=== PATIENT | male | born 1940 | race Hispanic/Latino ===

== ENCOUNTER 2016-11-08 07:37 | Day surgery (SDC) | payer MEDICARE | END 2016-11-08 07:38 | disposition home or self-care (01) | LOC: OPU 07:37 | PROVIDERS: ATTEND Internal Medicine | DX: I25.810 Atherosclerosis of coronary artery bypass graft(s) without angina pectoris (principal); Z53.8 Procedure and treatment not carried out for other reasons; I48.92 Unspecified atrial flutter; I42.9 Cardiomyopathy, unspecified; I13.0 Hypertensive heart and chronic kidney disease with heart failure and stage 1 through stage 4 chronic kidney disease, or unspecified chronic kidney disease; N18.3 Chronic kidney disease, stage 3 (moderate); I50.30 Unspecified diastolic (congestive) heart failure; D63.1 Anemia in chronic kidney disease; Z95.2 Presence of prosthetic heart valve; Z87.891 Personal history of nicotine dependence; Z72.89 Other problems related to lifestyle ==

== ENCOUNTER 2016-11-15 05:58 | Day surgery (SDC) | payer MEDICARE ==
[2016-11-15] MEDS ORDERED: ECOTRIN PO ONE (06:23)
[2016-11-15 06:50] LABS: Basophils % (Auto) 1.1 % (0.0-1.8); Eosinophils % (Auto) 3.6 % (0.0-4.3); Hematocrit 33.1 % (35.5-45.6); Hemoglobin 10.9 gm/dl (11.8-15.2); Mean Corpuscular HGB Conc 33 % (32-34); Mean Corpuscular Hemoglobin 27 pg (28-32); Mean Corpuscular Volume 83 fl (84-94); Platelet Count 217 K/mm3 (140-440); Red Blood Count 3.98 M/mm3 (3.65-5.03); Red Cell Distribution Width 15.4 % (13.2-15.2); White Blood Count 7.9 K/mm3 (4.5-11.0)
[2016-11-15] MEDS ORDERED: NACL 0.9% 500 ML 500 ML IV SCH (07:00)
[2016-11-15 07:09] LABS: BUN/Creatinine Ratio 17.05; Chloride 105.9 mmol/L (98-107); Potassium 4.7 mmol/L (3.6-5.0)
[2016-11-15 07:28] LABS: INR 0.99 (0.87-1.13)
[2016-11-15] MEDS ORDERED: VERSED ONE (08:20)
[2016-11-15] MEDS ORDERED: HEPARIN/NS 5000 UNIT/500ML(CATH LAB) 1,000 ML IR ONE (08:20)
[2016-11-15] MEDS ORDERED: HEPARIN/NS 5000 UNIT/500ML(CATH LAB) 500 ML IR ONE (08:23)
[2016-11-15] MEDS: SUBLIMAZE ONE ×2 (08:45→08:47)
[2016-11-15] MEDS: XYLOCAINE 2% INFILTRATI ONE ×2 (08:47→08:49)
[2016-11-15] MEDS ORDERED: APRESOLINE ONE (10:08)
--- NOTE | 2016-11-15 10:10 | Short Stay Summary ---
Short Stay Documentation Date of service: 11/15/16 - History H&P: obtained from office - Allergies and Medications Current Medications: Allergies No Known Allergies Allergy (Verified 03/26/15 12:26) Home Medications Medication Instructions Recorded Confirmed Last Taken Type Sodium Bicarbonate 4 tab PO BID 09/13/15 11/15/16 11/13/16 History 650mg Carvedilol [Coreg] 12.5 mg PO BID #60 tablet 09/24/15 11/15/16 11/15/16 Rx 12.5mg Escitalopram [Lexapro] 10 mg PO DAILY #30 tablet 09/24/15 11/15/16 11/14/16 Rx 10mg ISOSORBIDE MONOnitrate [Imdur ER] 30 mg PO QDAY #30 tablet 09/24/15 11/15/1609/21 Rx 30mg Pantoprazole [Protonix TAB] 40 mg PO QDAY #30 tablet 09/24/15 11/15/16 11/14/16 Rx 40mg Potassium Chloride [K-Dur] 20 meq PO DAILY #30 tablet 09/24/15 11/15/16 Rx 20meq Rosuvastatin (Nf) [Crestor] 20 mg PO QHS #30 tablet 09/24/15 11/15/16 11/14/16 Rx 20mg Clonidine HCl 0.2 mg PO DAILY 10/18/16 11/15/16 11/15/16 History 0.2mg hydrALAZINE [Apresoline TAB] 25 mg PO Q8HR 10/18/16 11/15/16 11/14/16 History 25mg Active Medications Sodium Chloride (Nacl 0.9% 500 Ml) 500 mls @ 50 mls/hr IV DIRECT MEKA Stop: 11/15/16 16:59 Last Admin: 11/15/16 07:30 Dose: 50 mls/hr - Physical exam General appearance: no acute distress Integumentary: no rash HEENT: Atraumatic Lungs: Clear to auscultation Breasts: deferred Heart: Regular rate Gastrointestinal: normal Female Genitourinary: deferred Rectal Exam: deferred Extremities: no ischemia Neurological: Normal gait - Brief post op/procedure progress note Date of procedure: 11/15/16 Pre-op diagnosis: Aortic stenosis Post-op diagnosis: same Procedure: LHC, RHC Anesthesia: MAC Findings: See Report Surgeon: ADARSH CASTELLANO Estimated blood loss: none Pathology: none Condition: stable - Hospital course Hospital course: Uneventful - Disposition Condition at discharge: Good Disposition: DISCHARGED TO HOME OR SELFCARE Short Stay Discharge Plan Activity: no driving until cleared by PCP (for 2 days) Weight Bearing Status: Non-Weight Bearing (for 2 days) Diet: low fat, low cholesterol, low salt Wound: keep clean and dry
[2016-11-15] MEDS ORDERED: APRESOLINE IV ONE (11:00)
--- NOTE | 2016-11-15 13:26 | Cardiac Catherization Report ---
LEFT HEART CATHETERIZATION AND RIGHT HEART CATHETERIZATION INDICATION FOR PROCEDURE: Shortness of breath, aortic valve stenosis. ORDERING PHYSICIAN: Arleth Macdonald MD. PROCEDURES PERFORMED: 1. Selective left coronary angiography. 2. Selective angiography of the COY graft to the LAD. 3. Selective angiography of the saphenous vein graft to the right posterior descending artery. 4. Right heart catheterization with hemodynamic measurement and oxygen saturation run. 5. Measurements of the gradient across the aortic valve with a double lumen pigtail. DESCRIPTION OF PROCEDURE: After obtaining written consent, the patient was draped using sterile technique. A 2% lidocaine was injected into the right groin. Using micropuncture technique, a 6-[place]izen [place] vascular sheath was inserted into the right common femoral artery and an 8-Citizen [place] vascular sheath was inserted into the right common femoral vein. A 7-Citizen [place]-Mirza catheter was used to measure right-sided hemodynamics and perform oxygen saturation run. A 6-Citizen [place] JL4 catheter was used to selectively engage the left coronary artery. A 6-[place] JR4 catheter was used to selectively engage the saphenous vein graft to the right posterior descending artery. A JR4 catheter was used to selectively engage the COY graft to the LAD. A double lumen pigtail was used to measure the gradient across the aortic valve. Left ventriculogram was not performed due to the patient's underlying renal insufficiency. No complications occurred during the procedure. Hemostasis was achieved at the end of the procedure using manual pressure. SPECIMEN REMOVED: None. ESTIMATED BLOOD LOSS: Minimal. FINDINGS: 1. Hemodynamics: Mean pulmonary capillary wedge pressure was 19 mmHg. 2. Mean pulmonary artery pressure was 39 mmHg. Pulmonary artery systolic pressure was 63 mmHg and the diastolic pressure of 25 mmHg. 3. Right ventricular systolic pressure is 70 mmHg with right ventricular end-diastolic pressure of 16 mmHg. 4. The mean right arterial pressure is 15 mmHg. 5. The aortic pressure was 218/70, the left ventricular systolic pressure was 232 mmHg and the left ventricular end-diastolic pressure was measured at 31 mmHg. 6. The mean gradient across the aortic valve is measured at 26 mmHg with a [id number] gradient of 14 mmHg. The aortic valve area was calculated at 1.34 cm square. 7. The Cameron cardiac output is 5.15 L per minute with a Cameron cardiac index of 2.89 L per minute per meter square. CARDIAC STRUCTURES: The left ventriculogram was not performed due to the patient's underlying renal insufficiency. CORONARY ANATOMY: 1. This is a right dominant circulation. 2. The left main has evidence of a stent extending from the mid segment into the proximal segment of the circumflex artery. This stent is patent with approximately 20-30% in-stent restenosis. 3. The left anterior descending artery is 100% occluded at the ostium. 4. The left circumflex artery exhibits evidence of 50% tubular stenosis involving the ostium of a small second obtuse marginal. 5. The right coronary artery is known to be occluded from previous coronary angiograms. 6. The COY to the LAD is patent with excellent distal vessel run-off. 7. The saphenous vein graft to the RCA is occluded. This is known from a previous coronary angiogram. 8. There are collaterals coming from the LAD to the distal right coronary artery. IMPRESSION: 1. Moderate aortic valve stenosis with a mean gradient of 26 mmHg, and aortic valve area of 1.34 cm square. It was fairly easy to cross the valve with a J-tipped wire. 2. Patent left main, proximal circumflex artery stent. Patent COY to the LAD with excellent distal vessel run-off. Collaterals are noted from the LAD into the distal right coronary artery. A tubular 50% stenosis is noted in the proximal segment of the small second obtuse marginal. 3. Evidence of elevated left and right-sided filling pressures. 4. Preserved cardiac output with evidence of moderate pulmonary venous hypertension. 5. No evidence of an intracardiac shunt. RECOMMENDATIONS: 1. The patient will be recommended for medical therapy with afterload reduction and gentle diuresis. 2. There is no indication on invasive assessment. The patient has significant aortic stenosis. JOB# [id number] ROSARIO/ROMELIA
[2016-11-15 13:36] VITALS: BP 153/63
== END 2016-11-15 14:11 | disposition home or self-care (01) ==
LOC: OPU 05:58
PROVIDERS: ATTEND Internal Medicine
DX: I25.10 Atherosclerotic heart disease of native coronary artery without angina pectoris (principal); I27.2 Other secondary pulmonary hypertension; K21.9 Gastro-esophageal reflux disease without esophagitis; E78.00 Pure hypercholesterolemia, unspecified; I48.0 Paroxysmal atrial fibrillation; I36.1 Nonrheumatic tricuspid (valve) insufficiency; I11.0 Hypertensive heart disease with heart failure; I50.21 Acute systolic (congestive) heart failure; Z98.890 Other specified postprocedural states; Z83.3 Family history of diabetes mellitus; Z82.49 Family history of ischemic heart disease and other diseases of the circulatory system; Z87.891 Personal history of nicotine dependence; Z72.89 Other problems related to lifestyle; Z95.2 Presence of prosthetic heart valve; Z95.1 Presence of aortocoronary bypass graft; Z95.5 Presence of coronary angioplasty implant and graft
CPT/HCPCS: 36415; 80048; 85025; 85610; 85730; 93005; 93010; 93460; 96374; C1751; C1769; C1894; J0360; J1644; J2250; J3010; J7040; Q9967

== ENCOUNTER 2017-09-19 07:33 | Day surgery (SDC) | payer MEDICARE ==
[2017-09-19] MEDS ORDERED: VERSED IV ONE (09:00)
[2017-09-19] MEDS ORDERED: HURRICAINE ONE 20% TOPICAL SPRAY MM NR (09:00)
[2017-09-19] MEDS ORDERED: SUBLIMAZE IV ONE (09:00)
--- NOTE | 2017-09-19 10:24 | Short Stay Summary ---
Short Stay Documentation Date of service: 09/19/17 - History H&P: obtained from office - Allergies and Medications Current Medications: Allergies No Known Allergies Allergy (Verified 03/26/15 12:26) Home Medications Medication Instructions Recorded Confirmed Last Taken Type Sodium Bicarbonate 4 tab PO BID 09/13/15 09/19/17 09/19/17 06:00 History Carvedilol [Coreg] 12.5 mg PO BID #60 tablet 09/24/15 09/19/17 09/19/17 06:00 Rx Escitalopram [Lexapro] 10 mg PO DAILY #30 tablet 09/24/15 09/19/17 09/19/17 06: 00 Rx ISOSORBIDE MONOnitrate [Imdur ER] 30 mg PO QDAY #30 tablet 09/24/15 09/19/17 06:00 Rx Pantoprazole [Protonix TAB] 40 mg PO QDAY #30 tablet 09/24/15 09/19/17 09/19/17 06:00 Rx Potassium Chloride [K-Dur] 20 meq PO DAILY #30 tablet 09/24/15 09/19/17 06:00 Rx Rosuvastatin (Nf) [Crestor] 20 mg PO QHS #30 tablet 09/24/15 09/19/17 09/18/17 Rx Clonidine HCl 0.2 mg PO DAILY 10/18/16 09/19/17 09/19/17 06:00 History hydrALAZINE [Apresoline TAB] 25 mg PO Q8HR 10/18/16 09/19/17 09/19/17 06:00 History Losartan Potassium [Losartan 100 mg PO DAILY 09/19/17 09/19/17 09/19/17 06:00 History Potassium] - Physical exam General appearance: no acute distress Integumentary: no rash HEENT: Atraumatic Lungs: Clear to auscultation Breasts: deferred Heart: Regular rate, Murmur Gastrointestinal: normal Male Genitourinary: deferred Female Genitourinary: deferred Rectal Exam: deferred Extremities: no ischemia Neurological: Normal gait - Brief post op/procedure progress note Date of procedure: 09/19/17 Pre-op diagnosis: Aortic stenosis Post-op diagnosis: same Procedure: TTE Anesthesia: none Findings: See report Surgeon: ADARSH CASTELLANO Estimated blood loss: none Pathology: none Condition: stable - Hospital course Hospital course: YAW not performed Needed information was obtained from a TTE - Disposition Condition at discharge: Good Disposition: [id number]-01 TO HOME OR SELFCARE Short Stay Discharge Plan Activity: advance as tolerated Weight Bearing Status: Weight Bear as Tolerated Diet: low fat, low cholesterol, low salt Follow up with: JEAN-PAUL HERNANDEZ JR, MD [Primary Care Provider] - 7 Days
[2017-09-19 10:49] VITALS: BP 149/58
== END 2017-09-19 11:41 | disposition home or self-care (01) ==
LOC: CATHLABREC 07:33 → EDSTATUS 09:30 → CATHLABREC 11:41
PROVIDERS: ATTEND Internal Medicine
DX: I48.0 Paroxysmal atrial fibrillation (principal); I35.0 Nonrheumatic aortic (valve) stenosis; I49.5 Sick sinus syndrome; I25.10 Atherosclerotic heart disease of native coronary artery without angina pectoris; I10 Essential (primary) hypertension; E78.00 Pure hypercholesterolemia, unspecified; K21.9 Gastro-esophageal reflux disease without esophagitis; C91.10 Chronic lymphocytic leukemia of B-cell type not having achieved remission; F17.200 Nicotine dependence, unspecified, uncomplicated; Z79.01 Long term (current) use of anticoagulants; Z95.1 Presence of aortocoronary bypass graft; Z95.2 Presence of prosthetic heart valve; Z98.890 Other specified postprocedural states; Z79.899 Other long term (current) drug therapy; Z82.49 Family history of ischemic heart disease and other diseases of the circulatory system
CPT/HCPCS: 93306; J2250; J3010

== ENCOUNTER 2017-12-14 08:54 | Day surgery (SDC) | payer MEDICARE ==
[2017-12-14 10:02] LABS: Albumin 3.6 g/dL (3.9-5); Calcium 8.5 mg/dL (8.4-10.2)
[2017-12-14 10:18] LABS: INR 1.03 (0.87-1.13)
[2017-12-14 10:19] LABS: Partial Thromboplastin Time 38.3 Sec. (24.2-36.6)
--- NOTE | 2017-12-14 11:36 | Procedure Note ---
Date of procedure: 12/14/17 Pre-op diagnosis: lt pleural effusion Post-op diagnosis: same Procedure: thoracentesis Anesthesia: local Surgeon: FRANCIS KENDRICK Estimated blood loss: none Pathology: list (pleural fluid) Specimen disposition: to lab Condition: stable Disposition: observation
[2017-12-14 11:52] LABS: pH, Body Fluid 7.491
--- NOTE | 2017-12-14 12:14 | Ultrasound Report ---
Ultrasound-guided left thoracentesis: Lymphoma patient with left pleural effusion. Imaging of the patient's back in the upright position demonstrated a large-volume of left pleural fluid. An entrance site was marked on the patient's back. The skin was cleansed and draped. 1% lidocaine used for local anesthesia. A skin elena a 5 [employer] catheter was successfully placed into the pleural collection. 120 cc of fluid was initially removed for laboratory evaluation. A total of 1.6 L of straw-colored fluid was successfully removed without complication.
[2017-12-14 12:55] LABS: Total Cells Counted 100 /mm3
--- NOTE | 2017-12-14 13:00 | XRay Report ---
Portable chest: Left thoracentesis. The cardiac contour is slightly enlarged. An intact bipolar pacemaker is present with bypass changes. There is vascular congestion. There are bilateral effusions greater on the right and left. There is no pneumothorax identified. Impression: Congestive changes. No complication of left thoracentesis.
[2017-12-14 13:09] VITALS: BP 101/39
[2017-12-19 07:37] LABS: LDH,Body Fluid 122; Total Protein,Body Fluid < 3.0 (15.0-45.0); Triglycerides,Body Fluid 12
== END 2017-12-14 13:40 | disposition home or self-care (01) ==
LOC: CATHLABREC 08:54 → EDSTATUS 09:00 → CATHLABREC 13:40
PROVIDERS: ATTEND Internal Medicine Critical Care Medicine
DX: J90 Pleural effusion, not elsewhere classified (principal); Z79.899 Other long term (current) drug therapy; Z79.01 Long term (current) use of anticoagulants
CPT/HCPCS: 32555; 36415; 71045; 80053; 82040; 82947; 83605; 83615; 83880; 84160; 84478; 85610; 85730; 87116; 88112; 88305; 89051

== ENCOUNTER 2018-01-03 10:17 | Outpatient (CLI) | payer MEDICARE ==
[2018-01-03 10:45] LABS: Calcium 8.7 mg/dL (8.4-10.2)
== END 2018-01-03 10:18 | disposition home or self-care (01) ==
LOC: LAB 10:17
PROVIDERS: ATTEND Internal Medicine Nephrology
DX: I13.0 Hypertensive heart and chronic kidney disease with heart failure and stage 1 through stage 4 chronic kidney disease, or unspecified chronic kidney disease (principal); I50.9 Heart failure, unspecified; N18.3 Chronic kidney disease, stage 3 (moderate); N25.81 Secondary hyperparathyroidism of renal origin; I48.91 Unspecified atrial fibrillation; I25.10 Atherosclerotic heart disease of native coronary artery without angina pectoris; D64.9 Anemia, unspecified
CPT/HCPCS: 36415; 80048; 83735

== ENCOUNTER 2019-04-20 01:22 | Inpatient (IN) | payer MEDICARE ==
--- NOTE | 2019-04-20 01:37 | Emergency Department Report ---
ED General Adult HPI - General Chief complaint: Dyspnea/Respdistress Stated complaint: sob Time Seen by Provider: 04/20/19 01:22 Source: EMS Mode of arrival: Stretcher Limitations: No Limitations - History of Present Illness Initial comments: Patient is an 78-year-old male presents emergency room that has complaints of shortness of breath 7 hours. Patient states his symptoms are worsening. Patient states he can't catch his breath. Patient states he became diaphoretic approximately 2 hours ago. Patient brought in by EMS. Patient states he feels awful. Patient denies chest pain. Patient denies fever and chills. Patient denies cough -: Sudden - Related Data Home Medications Medication Instructions Recorded Confirmed Last Taken Sodium Bicarbonate 4 tab PO BID 09/13/15 01/04/18 1 Day Ago ~01/03/18 cloNIDine HCl [Clonidine HCl] 0.2 mg PO DAILY 10/18/16 01/04/18 1 Day Ago ~01/03/18 hydrALAZINE [Apresoline TAB] 25 mg PO Q8HR 10/18/16 01/04/18 1 Day Ago ~01/03/18 Losartan Potassium 100 mg PO DAILY 09/19/17 01/04/18 1 Day Ago ~01/03/18 Previous Rx's Medication Instructions Recorded Last Taken Type Escitalopram [Lexapro] 10 mg PO DAILY #30 tablet 09/24/15 1 Day Ago Rx ~01/03/18 ISOSORBIDE MONOnitrate [Imdur ER] 30 mg PO QDAY #30 tablet 09/24/15 1 Day Ago Rx ~01/03/18 Potassium Chloride [K-Dur] 20 meq PO DAILY #30 tablet 09/24/15 1 Day Ago Rx ~01/03/18 Rosuvastatin (Nf) [Crestor] 20 mg PO QHS #30 tablet 09/24/15 1 Day Ago Rx ~01/03/18 Carvedilol [Coreg] 12.5 mg PO BID #60 tablet 01/07/18 Unknown Rx Furosemide [Lasix TAB] 20 mg PO QDAY #30 tablet 01/07/18 Unknown Rx Pantoprazole [Protonix TAB] 40 mg PO QDAY #30 tablet 01/07/18 Unknown Rx Allergies Allergy/AdvReac Type Severity Reaction Status Date / Time No Known Allergies Allergy Verified 04/22/18 10:13 ED Review of Systems ROS: Stated complaint: CHEST PAIN Other details as noted in HPI Constitutional: denies: chills, fever Eyes: denies: eye pain, eye discharge, vision change ENT: denies: ear pain, throat pain Respiratory: shortness of breath, SOB with exertion, SOB at rest. denies: cough, wheezing Cardiovascular: denies: chest pain, palpitations Endocrine: no symptoms reported Gastrointestinal: denies: abdominal pain, nausea, diarrhea Genitourinary: denies: urgency, dysuria Musculoskeletal: denies: back pain, joint swelling, arthralgia Skin: denies: rash, lesions Neurological: denies: headache, weakness, paresthesias Psychiatric: denies: anxiety, depression Hematological/Lymphatic: denies: easy bleeding, easy bruising ED Past Medical Hx - Past Medical History Previous Medical History?: Yes Hx Hypertension: Yes Hx Heart Attack/AMI: Yes Hx Congestive Heart Failure: Yes Hx Deep Vein Thrombosis: No Hx Pulmonary Embolism: No Hx GERD: Yes Hx Renal Disease: No Hx Sickle Cell Disease: No Hx Arthritis: Yes Hx Kidney Stones: Yes Hx Asthma: No Hx COPD: No Hx Tuberculosis: No Additional medical history: high cholesterol. Leukemia. Gout. Aortic Pig Valve. pacemaker - Surgical History Past Surgical History?: Yes Hx Coronary Stent: Yes (x2 2013) Hx Open Heart Surgery: Yes Hx Pacemaker: Yes Hx Internal Defibrillator: No Hx Cholecystectomy: No Hx Appendectomy: No Hx Breast Surgery: No - Family History Family history: no significant - Social History Smoking Status: Former Smoker Substance Use Type: None - Medications Home Medications: Home Medications Medication Instructions Recorded Confirmed Last Taken Type Sodium Bicarbonate 4 tab PO BID 09/13/15 01/04/18 1 Day Ago History ~01/03/18 Escitalopram [Lexapro] 10 mg PO DAILY #30 tablet 09/24/15 01/04/18 1 Day Ago Rx ~01/03/18 ISOSORBIDE MONOnitrate [Imdur ER] 30 mg PO QDAY #30 tablet 09/24/15 01/04/18 1 Day Ago Rx ~01/03/18 Potassium Chloride [K-Dur] 20 meq PO DAILY #30 tablet 09/24/15 01/04/18 1 Day Ago Rx ~01/03/18 Rosuvastatin (Nf) [Crestor] 20 mg PO QHS #30 tablet 09/24/15 01/04/18 1 Day Ago Rx ~01/03/18 cloNIDine HCl [Clonidine HCl] 0.2 mg PO DAILY 10/18/16 01/04/18 1 Day Ago History ~01/03/18 hydrALAZINE [Apresoline TAB] 25 mg PO Q8HR 10/18/16 01/04/18 1 Day Ago History ~01/03/18 Losartan Potassium 100 mg PO DAILY 09/19/17 01/04/18 1 Day Ago History ~01/03/18 Carvedilol [Coreg] 12.5 mg PO BID #60 tablet 01/07/18 Unknown Rx Furosemide [Lasix TAB] 20 mg PO QDAY #30 tablet 01/07/18 Unknown Rx Pantoprazole [Protonix TAB] 40 mg PO QDAY #30 tablet 01/07/18 Unknown Rx ED Physical Exam - General Limitations: No Limitations General appearance: alert, in distress - Head Head exam: Present: atraumatic, normocephalic - Eye Eye exam: Present: normal appearance - ENT ENT exam: Present: mucous membranes moist - Neck Neck exam: Present: normal inspection - Respiratory Respiratory exam: Present: respiratory distress, decreased breath sounds - Cardiovascular Cardiovascular Exam: Present: regular rate, normal rhythm, tachycardia. Absent: systolic murmur, diastolic murmur, rubs, gallop - GI/Abdominal GI/Abdominal exam: Present: soft, normal bowel sounds. Absent: distended, tenderness, guarding - Rectal Rectal exam: Present: deferred - Extremities Exam Extremities exam: Present: normal inspection - Back Exam Back exam: Present: normal inspection - Neurological Exam Neurological exam: Present: alert, oriented X3 - Psychiatric Psychiatric exam: Present: normal affect, normal mood - Skin Skin exam: Present: warm, dry, intact, diaphoretic, pallor. Absent: rash ED Course Vital Signs 04/20/19 04/20/19 04/20/19 01:20 01:23 01:28 Temperature Pulse Rate 124 H 120 H 123 H Respiratory 41 H 43 H Rate Blood Pressure 117/48 Blood Pressure 117/48 [Left] O2 Sat by Pulse 86 Oximetry 04/20/19 04/20/19 04/20/19 01:30 01:35 01:46 Temperature 97.5 F L Pulse Rate 83 72 Respiratory 38 H 18 Rate Blood Pressure 96/68 178/141 Blood Pressure [Left] O2 Sat by Pulse Oximetry 04/20/19 04/20/19 04/20/19 02:00 02:16 02:21 Temperature Pulse Rate 62 72 73 Respiratory 27 H 32 H Rate Blood Pressure 135/30 127/111 127/111 Blood Pressure [Left] O2 Sat by Pulse 65 L Oximetry 04/20/19 04/20/19 04/20/19 02:30 02:46 03:00 Temperature Pulse Rate 70 68 72 Respiratory 26 H 30 H 20 Rate Blood Pressure 127/111 127/111 107/31 Blood Pressure [Left] O2 Sat by Pulse 100 Oximetry 04/20/19 04/20/19 04/20/19 03:15 03:30 03:45 Temperature Pulse Rate 60 69 71 Respiratory 24 30 H 29 H Rate Blood Pressure 110/31 135/61 143/62 Blood Pressure [Left] O2 Sat by Pulse 94 Oximetry 04/20/19 04/20/19 04/20/19 04:00 04:15 04:26 Temperature Pulse Rate 66 66 71 Respiratory 26 H 25 H Rate Blood Pressure 119/50 134/47 134/47 Blood Pressure [Left] O2 Sat by Pulse 100 100 Oximetry 04/20/19 04/20/19 04/20/19 04:30 04:46 05:00 Temperature Pulse Rate 66 60 63 Respiratory 21 20 22 Rate Blood Pressure 128/47 113/43 115/45 Blood Pressure [Left] O2 Sat by Pulse Oximetry 04/20/19 04/20/19 04/20/19 05:15 05:30 05:45 Temperature Pulse Rate 60 64 60 Respiratory 14 20 11 L Rate Blood Pressure 112/58 104/33 108/37 Blood Pressure [Left] O2 Sat by Pulse Oximetry 04/20/19 04/20/19 04/20/19 06:00 06:15 06:30 Temperature Pulse Rate 68 62 63 Respiratory 12 12 19 Rate Blood Pressure 118/55 110/53 105/55 Blood Pressure [Left] O2 Sat by Pulse 100 100 Oximetry 04/20/19 06:45 Temperature Pulse Rate 61 Respiratory 14 Rate Blood Pressure 103/53 Blood Pressure [Left] O2 Sat by Pulse Oximetry - Reevaluation(s) Reevaluation #1: Initial evaluation done. Patient's initial rhythm strip shows A. fib RVR. Patient will be given Cardizem. 04/20/19 01:22 Cardizem decreased the patient's heart rate. Patient is still hypoxic. Patient will be intubated. See procedure note for intubation 04/20/19 01:28 Patient intubated without difficulties. See procedure note 04/20/19 01:48 Patient hypotensive. Patient will be given normal saline bolus of 500 mils 04/20/19 01:52 Blood pressure better with 200 mils of fluid. 04/20/19 02:09 Heparin protocol ordered however Was held until nuclear scan or CT will be done. Heparin protocol discontinued since the patient has a hemoglobin of 6.1. CT unable to be done due to the patient's kidney function, so a nuclear perfusion scan ordered. 04/20/19 04:51 - Consultations Consultation #1: Interventional cardiology, Dr Velasco consulted. Dr. Velasco states this is not a STEMI and patient can be worked up medically. 04/20/19 01:29 Consultation #2: Hospitalist consulted for admission. Hospitalist to admit patient. Hospitalist to assume care patient. 04/20/19 04:51 - Intubation Time Out Performed: Yes Sedative: Etomidate Paralytic: Succinylcholine Laryngoscope: fiberoptic video scope Size: 4 Assist Device Used: fiberoptic device ET Tube Size: 7.5 Tube Secured Depth (cm): 22 Tube Secured Location: lips Tube Placement Confirmation: visualized tube passing t, equal breath sounds bilat, no breath sounds over epi, confirmation by capnometr Patient Tolerated Procedure: well Intubation Complications: none ED Medical Decision Making - Lab Data Result diagrams: 04/20/19 04:19 04/20/19 04:19 - EKG Data -: EKG Interpreted by Ms EKG shows normal: sinus rhythm, axis, intervals, ST-T waves Rate: tachycardia - EKG Data When compared to previous EKG there are: changes noted Interpretation: other (prolonged QRS is consistent with LBBB) - Radiology Data Radiology results: report reviewed EXAM: XR CHEST 1V AP HISTORY: Dyspnea/ s/p intubation TECHNIQUE: AP CXR dated April 20, 2019 at 2:03 AM COMPARISON: None available. FINDINGS: ET tube in situ with distal tip approximately 3.4 cm above the yonis (adequate position). Nasogastric tube with distal tip out of [id number] below the hemidiaphragms, presumably within the stomach. Clinical correlation is advised. Status post sternotomy, presumably for CABG. Left subclavian cardiac pacer with intact pacer wires to the right atrium and right ventricle. Mild cardiomegaly. The mediastinum is otherwise unremarkable. The lung sanders and costophrenic angles are clear. There is no acute parenchymal infiltrate, pleural effusion, or pneumothorax seen. The visualized bony structures are within normal limits. IMPRESSION: 1. No evidence for acute cardiopulmonary disease seen. 2. Mild cardiomegaly. - Medical Decision Making Condition is an 78-year-old male presents to the emergency room with complaints of shortness of breath. Patient found to have multiple lab abnormalities. Patient found to be in DKA. Upon arrival. Patient was in such respiratory distress and hypoxia patient was intubated. Patient was intubated without difficulty. Patient's chest x-ray negative except for cardiomegaly. Patient admitted to the hospitalist service. Initially patient had a heparin protocol ordered however due to the patient's anemia E heparin was held. Patient had a diabetic ketoacidosis protocol started. Patient will have a nuclear scan. Nuclear scan is pending and the hospitalists agrees to admit with pending tests. - Differential Diagnosis sob. chf. nstemi. pe. afib rvr. Critical Care Time: Yes Critical care attestation.: If time is entered above; I have spent that time in minutes in the direct care of this critically ill patient, excluding procedure time. Critical Care Time: 80 minutes ED Disposition Clinical Impression: Hypoxia, Elevated troponin, Metabolic encephalopathy, Atrial fibrillation with RVR, Left bundle branch block (LBBB) Dyspnea Qualifiers: Dyspnea type: shortness of breath Qualified Code(s): R06.02 - Shortness of breath; R06.00 - Dyspnea, unspecified; R06.01 - Orthopnea Hypotension Qualifiers: Hypotension type: unspecified hypotension type Qualified Code(s): I95.9 - Hypotension, unspecified Renal failure Qualifiers: Renal failure chronicity: acute on chronic Acute renal failure type: unspecified Chronic kidney disease stage: unspecified stage Qualified Code(s): N17.9 - Acute kidney failure, unspecified; N18.9 - Chronic kidney disease, unspecified Anemia Qualifiers: Anemia type: unspecified type Qualified Code(s): D64.9 - Anemia, unspecified CAD (coronary artery disease) Qualifiers: Coronary Disease-Associated Artery/Lesion type: [place] artery [place] vs. transplanted heart: galena heart Associated angina: with unspecified angina Qualified Code(s): I25.119 - Atherosclerotic heart disease of [place] coronary artery with unspecified angina pectoris DKA (diabetic ketoacidoses) Qualifiers: Diabetes mellitus type: type 2 Diabetes mellitus complication detail: with coma Qualified Code(s): E11.11 - Type 2 diabetes mellitus with ketoacidosis with coma Disposition: 09 OP ADMIT IP TO THIS HOSP Is pt being admited?: Yes Does the pt Need Aspirin: No Condition: Critical Time of Disposition: 04:53
[2019-04-20] MEDS ORDERED: AMIDATE IV ONE (01:40)
[2019-04-20] MEDS ORDERED: QUELICIN ONE (01:40)
[2019-04-20] MEDS ORDERED: CARDIZEM IV ONE (01:50)
[2019-04-20 02:51] LABS: Mean Corpuscular HGB Conc 28 % (32-34); Mean Corpuscular Volume 95 fl (84-94); Platelet Count 337 K/mm3 (140-440); Red Blood Count 2.24 M/mm3 (3.65-5.03); Red Cell Distribution Width 19.6 % (13.2-15.2)
[2019-04-20] MEDS ORDERED: fentaNYL DRIP Premix 2,000 MCG/100 ML BAG IV SCH (03:00)
[2019-04-20 03:03] LABS: Hematocrit 21.2 % (35.5-45.6); Hemoglobin 6.1 gm/dl (11.8-15.2)
[2019-04-20 03:21] LABS: Creatine Kinase MB 5.1 ng/mL (0.0-4.0)
[2019-04-20 03:22] LABS: Calcium 7.9 mg/dL (8.4-10.2)
--- NOTE | 2019-04-20 03:46 | XRay Report ---
EXAM: XR CHEST 1V AP HISTORY: Dyspnea/ s/p intubation TECHNIQUE: AP CXR dated April 20, 2019 at 2:03 AM COMPARISON: None available. FINDINGS: ET tube in situ with distal tip approximately 3.4 cm above the yonis (adequate position). Nasogastri c tube with distal tip out of [id number] below the hemidiaphragms, presumably within the stomach. Clinical correlation is advised. Status post sternotomy, presumably for CABG. Left subclavian cardiac pacer with intact pacer wires to the right atrium and right ventricle. Mild cardiomegaly. The mediastinum is otherwise unremarkable. The lung sanders and costophrenic angles are clear. There is no acute parenchymal infiltrate, pleural effusion, or pneumothorax seen. The visualized bony stru ctures are within normal limits. IMPRESSION: 1. No evidence for acute cardiopulmonary disease seen. 2. Mild cardiomegaly. This document is electronically signed by Hector Gaines MD., April 20 2019 03:44:19 AM ET
[2019-04-20] MEDS ORDERED: HEPARIN 10,000 UNITS/10 ML IV ONE (03:58)
[2019-04-20 04:10] LABS: Bacteria,Urine 1+ /HPF (Negative); Bilirubin,Urine NEG (Negative); Blood,Urine NEG (Negative); Color,Urine Yellow (Yellow); Hyaline Casts,Urine 3 /LPF; Mucus,Urine FEW /HPF; Protein,Urine <15 mg/dL mg/dL (Negative); Urobilinogen,Urine < 2.0 mg/dL (<2.0)
[2019-04-20 04:41] LABS: Hematocrit 20.8 % (35.5-45.6); Hemoglobin 6.1 gm/dl (11.8-15.2)
[2019-04-20] MEDS ORDERED: D50W (25GM) Syringe IV PRN (04:50)
[2019-04-20 04:54] LABS: INR 1.38 (0.87-1.13)
[2019-04-20 04:55] LABS: Partial Thromboplastin Time 31.6 Sec. (24.2-36.6)
[2019-04-20] MEDS ORDERED: HumuLIN R 100 UNITS in NACL 0.9% 99 ML IV SCH (05:00)
[2019-04-20] MEDS ORDERED: NACL 0.9% 1000 ML 1,000 ML IV ONE (05:02)
[2019-04-20] MEDS ORDERED: ZOFRAN IV PRN (05:26)
[2019-04-20] MEDS ORDERED: ASPIRIN PR ONE (05:26)
[2019-04-20] MEDS ORDERED: TYLENOL PO PRN (05:26)
[2019-04-20] MEDS ORDERED: TYLENOL PR PRN (05:26)
[2019-04-20] MEDS ORDERED: SODIUM CHLORIDE FLUSH SYRINGE 10 ML IV PRN (05:26)
[2019-04-20] MEDS ORDERED: NACL 0.9% 500 ML 500 ML IV ONE ×3 (05:31→10:23)
[2019-04-20 05:45] LABS: Calcium 8.3 mg/dL (8.4-10.2)
[2019-04-20] MEDS ORDERED: ZOSYN/NS 2.25 GM/50ML 2.25 GM/50 ML BAG IV SCH (06:00)
[2019-04-20] MEDS ORDERED: ZOSYN/NS 3.375GM/50ML 3.375 GM/50 ML BAG IV SCH (06:00)
[2019-04-20] MEDS ORDERED: NACL 0.9% 1000 ML 1,000 ML IV SCH ×2 (06:00→13:00)
[2019-04-20] MEDS ORDERED: NACL 0.45% 1000 ML 1,000 ML IV SCH (06:00)
--- NOTE | 2019-04-20 06:17 | History and Physical Report ---
History of Present Illness Date of examination: 04/20/19 History of present illness: Information obtained from old charts which were reviewed . 78 year old man with leukemia, CAD, HTN, Hyperlipidemia comes to emergency room with complaints of shortness of breath. He was found to be in A. fib with RVR in the emergency r oom, given 20 IV Cardizem and intubated. He was started on insulin drip for DKA PAST MEDICAL HISTORY: Leukemia, coronary artery disease, hypertension, hyperlipidemia PAST SURGICAL HISTORY:Valve replacement, PM SOCIAL HISTORY: Denies, tobacco, drugs or alcohol FAMILY HISTORY: Hypertension Medications and Allergies Allergies Allergy/AdvReac Type Severity Reaction Status Date / Time No Known Allergies Allergy Verified 04/22/18 10:13 Home Medications Medication Instructions Recorded Confirmed Last Taken Type Sodium Bicarbonate 4 tab PO BID 09/13/15 01/04/18 1 Day Ago History ~01/03/18 Escitalopram [Lexapro] 10 mg PO DAILY #30 tablet 09/24/15 01/04/18 1 Day Ago Rx ~01/03/18 ISOSORBIDE MONOnitrate [Imdur ER] 30 mg PO QDAY #30 tablet 09/24/15 01/04/18 1 Day Ago Rx ~01/03/18 Potassium Chloride [K-Dur] 20 meq PO DAILY #30 tablet 09/24/15 01/04/18 1 Day Ago Rx ~01/03/18 Rosuvastatin (Nf) [Crestor] 20 mg PO QHS #30 tablet 09/24/15 01/04/18 1 Day Ago Rx ~01/03/18 cloNIDine HCl [Clonidine HCl] 0.2 mg PO DAILY 10/18/16 01/04/18 1 Day Ago History ~01/03/18 hydrALAZINE [Apresoline TAB] 25 mg PO Q8HR 10/18/16 01/04/18 1 Day Ago History ~01/03/18 Losartan Potassium 100 mg PO DAILY 09/19/17 01/04/18 1 Day Ago History ~01/03/18 Carvedilol [Coreg] 12.5 mg PO BID #60 tablet 01/07/18 Unknown Rx Furosemide [Lasix TAB] 20 mg PO QDAY #30 tablet 01/07/18 Unknown Rx Pantoprazole [Protonix TAB] 40 mg PO QDAY #30 tablet 01/07/18 Unknown Rx Active Meds: Active Medications Acetaminophen (Tylenol) 650 mg PO Q4H PRN PRN Reason: Pain MILD(1-3)/Fever >100.5/RODAS Acetaminophen (Tylenol) 650 mg VT Q4H PRN PRN Reason: Pain MILD(1-3)/Fever >100.5/RODAS Dextrose (D50w (25gm) Syringe) 0 ml IV PRN PRN PRN Reason: Hypoglycemia Fentanyl Citrate (Fentanyl Drip Premix) 2,000 mcg in 100 mls @ 3.53 mls/hr IV TITR MEKA; Protocol Last Titration: 04/20/19 05:30 Dose: 4 mcg/kg/hr, 14.12 mls/hr Documented by: Insulin Human Regular 100 (units/ Sodium Chloride) 100 mls @ 1 mls/hr IV TITR MEKA; Protocol Last Admin: 04/20/19 05:30 Dose: 5 units/hr, 5 mls/hr Documented by: Sodium Chloride (Nacl 0.45% 1000 Ml) 1,000 mls @ 50 mls/hr IV DIRECT MEKA Last Admin: 04/20/19 06:03 Dose: 50 mls/hr Documented by: Piperacillin Sod/Tazobactam Sod (Zosyn/Ns 2.25 Gm/50ml) 2.25 gm in 50 mls @ 100 mls/hr IV Q8HR MEKA Ondansetron HCl (Zofran) 4 mg IV Q8H PRN PRN Reason: Nausea And Vomiting Sodium Chloride (Sodium Chloride Flush Syringe 10 Ml) 10 ml IV BID MEKA Sodium Chloride (Sodium Chloride Flush Syringe 10 Ml) 10 ml IV PRN PRN PRN Reason: LINE FLUSH Exam - Physical Exam Narrative exam: General Apperance: The patient lying in bed, breathing comfortable, intubated HEENT: Normocephalic, atraumatic. Pupils equally round and reactive to light, unable to do EOM, no sclericterus or JVD or thyromegaly or nodule. , no carotid bruit, mucous membranes moist, unable to examine oral cavity, ET tube in place Heart: S1-S2, regular is rhythm Lungs: Clear to auscultation bilaterally, breathing comfortable Abdomen: Positive bowel sounds, soft, nondistended, no organomegaly Extremities: No edema cyanosis clubbing Skin: no rash, nodule, warm and dry Neuro: Sedated - Constitutional Vitals: Temp Pulse Resp BP Pulse Ox 97.5 F L 68 12 118/55 100 04/20/19 01:35 04/20/19 06:00 04/20/19 06:00 04/20/19 06:00 04/20/19 06:00 Results - Labs CBC & Chem 7: 04/20/19 10:47 04/20/19 10:47 Labs: Abnormal lab results 04/20/19 04/20/19 04/20/19 Range/Units 02:26 02:26 02:26 WBC 16.6 H (4.5-11.0) K/mm3 RBC 2.24 L (3.65-5.03) M/mm3 Hgb 6.1 L (11.8-15.2) gm/dl Hct 21.2 L (35.5-45.6) % MCV 95 H (84-94) fl MCH 26 L (28-32) pg MCHC 28 L (32-34) % RDW 19.6 H (13.2-15.2) % PT (12.2-14.9) Sec. INR (0.87-1.13) D-Dimer 878.28 H (0-234) ng/mlDDU POC ABG pH (7.35-7.45) Sodium 133 L (137-145) mmol/L Potassium (3.6-5.0) mmol/L Carbon Dioxide 8 L* (22-30) mmol/L BUN 45 H (9-20) mg/dL Creatinine 2.5 H (0.8-1.5) mg/dL Glucose 314 H (75-100) mg/dL POC Glucose (70-105) Calcium 7.9 L (8.4-10.2) mg/dL Phosphorus (2.5-4.5) mg/dL Magnesium (1.7-2.3) mg/dL CK-MB (CK-2) 5.1 H (0.0-4.0) ng/mL CK-MB (CK-2) Rel Index 6.7 H (0-4) Troponin T 0.192 H* (0.00-0.029) ng/mL Total Protein 5.3 L (6.3-8.2) g/dL Albumin 3.0 L (3.9-5) g/dL 04/20/19 04/20/19 04/20/19 Range/Units 04: 04:19 04:19 WBC (4.5-11.0) K/mm3 RBC (3.65-5.03) M/mm3 Hgb 6.1 L (11.8-15.2) gm/dl Hct 20.8 L (35.5-45.6) % MCV (84-94) fl MCH (28-32) pg MCHC (32-34) % RDW (13.2-15.2) % PT 16.6 H (12.2-14.9) Sec. INR 1.38 H (0.87-1.13) D-Dimer (0-234) ng/mlDDU POC ABG pH (7.35-7.45) Sodium (137-145) mmol/L Potassium (3.6-5.0) mmol/L Carbon Dioxide (22-30) mmol/L BUN (9-20) mg/dL Creatinine (0.8-1.5) mg/dL Glucose (75-100) mg/dL POC Glucose (70-105) Calcium (8.4-10.2) mg/dL Phosphorus 8.80 H (2.5-4.5) mg/dL Magnesium 2.70 H (1.7-2.3) mg/dL CK-MB (CK-2) (0.0-4.0) ng/mL CK-MB (CK-2) Rel Index (0-4) Troponin T (0.00-0.029) ng/mL Total Protein (6.3-8.2) g/dL Albumin (3.9-5) g/dL 04/20/19 04/20/19 04/20/19 Range/Units 04: 04:20 05:08 WBC (4.5-11.0) K/mm3 RBC (3.65-5.03) M/mm3 Hgb (11.8-15.2) gm/dl Hct (35.5-45.6) % MCV (84-94) fl MCH (28-32) pg MCHC (32-34) % RDW (13.2-15.2) % PT (12.2-14.9) Sec. INR (0.87-1.13) D-Dimer (0-234) ng/mlDDU POC ABG pH 7.024 L (7.35-7.45) Sodium 135 L (137-145) mmol/L Potassium 5.1 H (3.6-5.0) mmol/L Carbon Dioxide (22-30) mmol/L BUN 46 H (9-20) mg/dL Creatinine 3.0 H (0.8-1.5) mg/dL Glucose 322 H (75-100) mg/dL POC Glucose 294 H (70-105) Calcium 8.3 L (8.4-10.2) mg/dL Phosphorus (2.5-4.5) mg/dL Magnesium (1.7-2.3) mg/dL CK-MB (CK-2) (0.0-4.0) ng/mL CK-MB (CK-2) Rel Index (0-4) Troponin T (0.00-0.029) ng/mL Total Protein (6.3-8.2) g/dL Albumin (3.9-5) g/dL - Imaging and Cardiology EKG: image reviewed Chest x-ray: image reviewed Assessment and Plan Assessment Acute respiratory failure DKA, new onset A. fib, new onset Acute renal failure Anemia/Heme Positive stool SIRS Leukemia h/O chf coronary artery disease H/O hypertension hyperlipidemia Plan Admit to medicine Continue fentanyl drip for sedation Continue insulin drip, gentle IV fluids, monitor fingersticks, check serial chemistry Patient now in Normal sinus rhythm, check cardiac enzymes, echo Consult cardiology, critical care Transfuse blood, consult GI, Protonix Start empiric IV antibiotic, follow cultures DVT prophylaxis Prognosis guarded Addendum V/Q is pending, please follow
[2019-04-20] MEDS ORDERED: CARDIZEM ONE (06:32)
[2019-04-20] MEDS ORDERED: D5W/0.45% NACL/KCL 20 MEQ 20 MEQ/1,000 ML BAG IV ONE (08:34)
[2019-04-20] MEDS ORDERED: D5W/0.45% NACL/KCL 20 MEQ 20 MEQ/1,000 ML BAG IV SCH (09:00)
--- NOTE | 2019-04-20 09:58 | Consultation ---
History of Present Illness Consult date: 04/20/19 Consult reason: atrial fibrillation, congestive heart failure History of present illness: 16-year-old white male with a history of paroxysmal atrial fibrillation coronary artery disease diabetes mellitus was admitted with shortness of breath currently intubated patient found to be in diabetic ketoacidosis and is currently on an insulin drip. I did time of my evaluation patient is intubated. nonverbal or communicative Past History Past Medical History: CAD, COPD, diabetes, hyperlipidemia, renal failure Past Surgical History: CABG Social history: no significant social history Medications and Allergies Allergies Allergy/AdvReac Type Severity Reaction Status Date / Time No Known Allergies Allergy Verified 04/22/18 10:13 Home Medications Medication Instructions Recorded Confirmed Last Taken Type Sodium Bicarbonate 4 tab PO BID 09/13/15 01/04/18 1 Day Ago History ~01/03/18 Escitalopram [Lexapro] 10 mg PO DAILY #30 tablet 09/24/15 01/04/18 1 Day Ago Rx ~01/03/18 ISOSORBIDE MONOnitrate [Imdur ER] 30 mg PO QDAY #30 tablet 09/24/15 01/04/18 1 Day Ago Rx ~01/03/18 Potassium Chloride [K-Dur] 20 meq PO DAILY #30 tablet 09/24/15 01/04/18 1 Day Ago Rx ~01/03/18 Rosuvastatin (Nf) [Crestor] 20 mg PO QHS #30 tablet 09/24/15 01/04/18 1 Day Ago Rx ~01/03/18 cloNIDine HCl [Clonidine HCl] 0.2 mg PO DAILY 10/18/16 01/04/18 1 Day Ago History ~01/03/18 hydrALAZINE [Apresoline TAB] 25 mg PO Q8HR 10/18/16 01/04/18 1 Day Ago History ~01/03/18 Losartan Potassium 100 mg PO DAILY 09/19/17 01/04/18 1 Day Ago History ~01/03/18 Carvedilol [Coreg] 12.5 mg PO BID #60 tablet 01/07/18 Unknown Rx Furosemide [Lasix TAB] 20 mg PO QDAY #30 tablet 01/07/18 Unknown Rx Pantoprazole [Protonix TAB] 40 mg PO QDAY #30 tablet 01/07/18 Unknown Rx Active Meds: Active Medications Acetaminophen (Tylenol) 650 mg PO Q4H PRN PRN Reason: Pain MILD(1-3)/Fever >100.5/RODAS Acetaminophen (Tylenol) 650 mg AR Q4H PRN PRN Reason: Pain MILD(1-3)/Fever >100.5/RODAS Dextrose (D50w (25gm) Syringe) 0 ml IV PRN PRN PRN Reason: Hypoglycemia Fentanyl Citrate (Fentanyl Drip Premix) 2,000 mcg in 100 mls @ 3.53 mls/hr IV TITR MEKA; Protocol Last Titration: 04/20/19 05:30 Dose: 4 mcg/kg/hr, 14.12 mls/hr Documented by: Insulin Human Regular 100 (units/ Sodium Chloride) 100 mls @ 1 mls/hr IV TITR MEKA; Protocol Last Titration: 04/20/19 07:45 Dose: 1.5 units/hr, 1.5 mls/hr Documented by: Piperacillin Sod/Tazobactam Sod (Zosyn/Ns 2.25 Gm/50ml) 2.25 gm in 50 mls @ 100 mls/hr IV Q8HR MEKA Last Admin: 04/20/19 06:19 Dose: 100 mls/hr Documented by: Potassium Chloride/Dextrose/Sod Cl (D5w/0.45% Nacl/Kcl 20 Meq) 20 meq in 1,000 mls @ 125 mls/hr IV DIRECT MEKA Ondansetron HCl (Zofran) 4 mg IV Q8H PRN PRN Reason: Nausea And Vomiting Pantoprazole Sodium (Protonix) 40 mg IV BID MEKA Sodium Chloride (Sodium Chloride Flush Syringe 10 Ml) 10 ml IV BID MEKA Sodium Chloride (Sodium Chloride Flush Syringe 10 Ml) 10 ml IV PRN PRN PRN Reason: LINE FLUSH Review of Systems ROS unobtainable: due to endotracheal tube Physical Examination Vital Signs Pulse Resp 124 H 41 H 04/20/19 01:20 04/20/19 01:20 General appearance: no acute distress, other (Thin white male intubated) HEENT: Positive: PERRL, Normocephaly, Mucus Membranes Moist Neck: Positive: neck supple, trachea midline. Negative: JVD/HJR Cardiac: Positive: Regular Rate, S1/S2, PMI, Laterally Displaced Lungs: Positive: clear to auscultation, No Wheeze, Rales, Rhonchi Neuro: Positive: No Lateralizing Findings Abdomen: Positive: Unremarkable, Soft, Active Bowel Sounds Skin: Positive: Bruising Extremities: Absent: edema Results 04/20/19 04:19 04/20/19 04:19 Cardiac Enzymes 04/20/19 Range/Units 02:26 AST 16 (5-40) units/L CK-MB (CK-2) 5.1 H (0.0-4.0) ng/mL Coagulation 04/20/19 Range/Units 04:19 PT 16.6 H (12.2-14.9) Sec. INR 1.38 H (0.87-1.13) APTT 31.6 (24.2-36.6) Sec. CBC 04/20/19 04/20/19 Range/Units 02:26 04:19 WBC 16.6 H (4.5-11.0) K/mm3 RBC 2.24 L (3.65-5.03) M/mm3 Hgb 6.1 L 6.1 L (11.8-15.2) gm/dl Hct 21.2 L 20.8 L (35.5-45.6) % Plt Count 337 360 (140-440) K/mm3 Lymph # Office Receptionist Comprehensive Metabolic Panel 04/20/19 04/20/19 Range/Units 02:26 04:19 Sodium 133 L 135 L (137-145) mmol/L Potassium 4.4 5.1 H (3.6-5.0) mmol/L Chloride 101.6 100.9 (98-107) mmol/L Carbon Dioxide 8 L* 5 L* (22-30) mmol/L BUN 45 H 46 H (9-20) mg/dL Creatinine 2.5 H 3.0 H (0.8-1.5) mg/dL Glucose 314 H 322 H (75-100) mg/dL Calcium 7.9 L 8.3 L (8.4-10.2) mg/dL AST 16 (5-40) units/L ALT 7 (7-56) units/L Alkaline Phosphatase 66 (35-129) units/L Total Protein 5.3 L (6.3-8.2) g/dL Albumin 3.0 L (3.9-5) g/dL EKG interpretations - Telemetry EKG Rhythm: Sinus Tachycardia Assessment and Plan 1. Acute respiratory failure secondary to congestive heart failure 2. Calcific aortic valvular disease with severe aortic stenosis 3. Atherosclerotic heart disease status post CABG 4. Ischemic cardiomyopathy 5. Chronic atrial fibrillation 6. Type 2 diabetes mellitus in diabetic ketoacidosis 7. Presence of bowel prosthetic aortic valve 8. COPD 10. Presence of cardiac pacemaker. 11. acute on chronic Renal failure 12. Anemia probably secondary to chronic disease Plan. Currently in diabetic ketoacidosis and is being managed for this. Previous documentation of severe aortic stenosis with reduced LV ejection fraction initial recommendation for TAVR and evaluation not sure if this was made. Patient to have a repeat echocardiogram to assess left ventricular function and aortic valve area. Congestive heart failure in the setting of severe aortic stenosis carries a poor prognosis.
[2019-04-20] MEDS ORDERED: SODIUM CHLORIDE FLUSH SYRINGE 10 ML IV SCH (10:00)
[2019-04-20] MEDS ORDERED: PROTONIX IV SCH (10:00)
--- NOTE | 2019-04-20 10:15 | Nuclear Medicine Report ---
PROCEDURE: NM PERFUSION ONLY LUNG SCAN TECHNIQUE: Perfusion lung scan performed. Perfusion dosage: 5.0 mCi technetium MAA IV. Ventilation i maging not performed. HISTORY: sob,. elevated d-dimer COMPARISON: None FINDINGS: Perfusion is fairly homogeneous. No segmental or subsegmental perfusion defects are seen. IMPRESSION: No segmental perfusion defects seen. No scintigraphic evidence of pulmonary embolus. This document is electronically signed by Angie Parker MD., April 20 2019 10:13:33 AM ET
[2019-04-20] MEDS ORDERED: LEVOPHED DRIP 4 MG/NS 250 ML 4 MG/250 ML BAG IV ONE (10:16)
[2019-04-20] MEDS ORDERED: LEVOPHED DRIP 4 MG/NS 250 ML 4 MG/250 ML BAG IV SCH (11:00)
[2019-04-20 11:24] LABS: Albumin 2.7 g/dL (3.9-5)
[2019-04-20 11:38] LABS: Mean Corpuscular HGB Conc 29 % (32-34); Mean Corpuscular Volume 90 fl (84-94); Platelet Count 289 K/mm3 (140-440); Red Blood Count 2.17 M/mm3 (3.65-5.03); Red Cell Distribution Width 19.1 % (13.2-15.2)
[2019-04-20 11:46] LABS: Calcium 7.4 mg/dL (8.4-10.2)
[2019-04-20] MEDS ORDERED: fentaNYL DRIP Premix 2,000 MCG/100 ML BAG IV ONE (12:11)
[2019-04-20 12:12] LABS: Hematocrit 19.6 % (35.5-45.6)
[2019-04-20 12:13] LABS: Hemoglobin 5.7 gm/dl (11.8-15.2)
[2019-04-20 13:11] LABS: Basophils % (Manual) 0 % (0.0-1.8); Eosinophils % (Manual) 0 % (0.0-4.3); Total Cells Counted 100
[2019-04-20 13:13] LABS: Giant Platelets Few; Platelet Estimate Consistent w Auto
[2019-04-20 13:30] VITALS: BP 169/33
--- NOTE | 2019-04-20 13:39 | Death Summary ---
Summary - Providers Date of service: 04/20/19 Consults: 04/20/19 05:26 Consult to Physician [CONS] Routine Comment: NURSE TYSON NARANJO W/DR AGUILAR @1020 Consulting Provider: JAROCHO CABRERA Physician Instructions: Reason For Exam: cc 04/20/19 06:24 Consult to Physician [CONS] Routine Comment: CLD OFC TO ADV OF CONSULT @1156 Consulting Provider: GOMEZ LEES Physician Instructions: Reason For Exam: heme p[os stool, anemia 04/20/19 06:25 Consult to Physician [CONS] Routine Comment: [facility]D OFC TO ADV OF CONSULT 1224/JOSE A W/DR GILMORE @1229 Consulting Provider: ADARSH CASTELLANO Physician Instructions: Reason For Exam: afib/ ab ce Attending: DARRYN DEL REAL - summary Date of admission: 04/20/19 05:26 Procedures/treatments rendered: 78 year old man with h/o leukemia, CAD, HTN, Hyperlipidemia came to the emergency room with complaints of shortness of breath. He was found to be in A. fib with RVR in the emergency room, given 20 IV Cardizem and intubated. He was started on insulin drip for DKA. He also noted to have severe anemia, renal failure, severe lactic acidosis with possible sepsis and hypotensive. Placed on iv fluid, pressors, ordered pRBC stat for transfusion,started on empiric abx, obtained cx, consulted cardiology, critical care and admitted the patient to ICU. Then patient lost his pulse and ACLS immediately initiated at 12:50 AcLS continued for 17 minutes, Patient was in PEA, unable to gain pulse, pronounced at 01;07. See code sheet for details. I spoke with daughter Jasmina Johnson [phone] and updated about patient's sta tus. Cause of : Cardiopulmonary arrest due to severe sepsis, severe anemia, acidosis, renal failure and underlying malignancy.
--- NOTE | 2019-04-20 13:39 | Event Note ---
Date: 04/20/19 Patient lost his pulse and ACLS initiated ar 12;50 AcLS continued for 17 minutes, see code sheet for details Patient was in PEA, unable to gain pulse. pronounced at ;07 Spoke with daughter Jasmina Johnson [phone] and updated She lives about an hour away from the hospital, all questions answered
[2019-04-20 18:43] LABS: Chol/HDL Ratio 4.31 %
== END 2019-04-20 13:00 | DRG 208 ==
LOC: ED 01:22 → CC1 05:26
PROVIDERS: ADMIT Internal Medicine; ATTEND Internal Medicine
PROC: 0BH17EZ Insertion of Endotracheal Airway into Trachea, Via Natural or Artificial Opening (ICD-10-PCS; principal; 2019-04-20)
PROC: 5A1935Z Respiratory Ventilation, Less than 24 Consecutive Hours (ICD-10-PCS; 2019-04-20)
PROC: 4A033R1 Measurement of Arterial Saturation, Peripheral, Percutaneous Approach (ICD-10-PCS; 2019-04-20)
DX: J96.01 Acute respiratory failure with hypoxia (principal); E11.10 Type 2 diabetes mellitus with ketoacidosis without coma; G93.41 Metabolic encephalopathy; N17.9 Acute kidney failure, unspecified; I13.0 Hypertensive heart and chronic kidney disease with heart failure and stage 1 through stage 4 chronic kidney disease, or unspecified chronic kidney disease; C95.90 Leukemia, unspecified not having achieved remission; R65.10 Systemic inflammatory response syndrome (SIRS) of non-infectious origin without acute organ dysfunction; I25.2 Old myocardial infarction; D64.9 Anemia, unspecified; I50.9 Heart failure, unspecified; K21.9 Gastro-esophageal reflux disease without esophagitis; M19.90 Unspecified osteoarthritis, unspecified site; M10.9 Gout, unspecified; I44.7 Left bundle-branch block, unspecified; I95.9 Hypotension, unspecified; N18.9 Chronic kidney disease, unspecified; I25.119 Atherosclerotic heart disease of native coronary artery with unspecified angina pectoris; E78.5 Hyperlipidemia, unspecified; J44.9 Chronic obstructive pulmonary disease, unspecified; I35.0 Nonrheumatic aortic (valve) stenosis; I25.5 Ischemic cardiomyopathy; I48.2 Chronic atrial fibrillation; Z95.0 Presence of cardiac pacemaker; Z95.2 Presence of prosthetic heart valve; Z95.5 Presence of coronary angioplasty implant and graft; Z95.1 Presence of aortocoronary bypass graft; Z87.891 Personal history of nicotine dependence
CPT/HCPCS: 36415; 71045; 78580; 80048; 80053; 80061; 81001; 82140; 82550; 82553; 82803; 82962; 83735; 83880; 84100; 84484; 85007; 85014; 85018; 85025; 85049; 85379; 85610; 85730; 86850; 86900; 86901; 86920; 87205; 93005; 93010; 94002; 94003; 99292; G0378; A9540; J0330; J1815; J2543; J3010; J7030